=== PATIENT | female | born 1970 | race Caucasian/White ===

== ENCOUNTER 2019-09-01 09:54 | Emergency (ER) | payer MEDICAID ==
[~2019-09-01] VITALS: Ht 162.6 cm; Wt 84.0 kg
[~2019-09-01 09:54] MED LIST: [UNRECOGNIZED DRUG - CODE] PO
[2019-09-01] MEDS ORDERED: TAM75C PO (11:38)
[2019-09-01] MEDS ORDERED: PRED20TA PO (11:38)
[2019-09-01 12:10] VITALS: BP 113/71
== END 2019-09-01 12:12 | disposition home or self-care (01) ==
LOC: ER 09:54
DX: J06.9 Acute upper respiratory infection, unspecified (principal); Z86.69 Personal history of other diseases of the nervous system and sense organs; Z88.0 Allergy status to penicillin; Z88.8 Allergy status to other drugs, medicaments and biological substances; Z79.2 Long term (current) use of antibiotics; Z79.899 Other long term (current) drug therapy
CPT/HCPCS: 87502; 87503; 99283